=== PATIENT | female | born 2005 | race Hispanic/Latino ===

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

== ENCOUNTER 2024-04-11 16:09 | Emergency (ER) | payer MEDICAID ==
[~2024-04-11] VITALS: Ht 160 cm; Wt 54.9 kg
[~2024-04-11 16:09] MED LIST: CEPH500B PO
[2024-04-11] MEDS ORDERED: acetaMINOPHEN 500 MG TABLET PO ONE (16:30)
[2024-04-11 17:06] LABS: BASOPHILS # (AUTO) 0.01 K/uL (0.00-0.20); BASOPHILS % (AUTO) 0.2 % (0.0-5.0); EOSINOPHILS # (AUTO) 0.04 K/uL (0.00-0.70); EOSINOPHILS % (AUTO) 0.7 % (0.0-8.0); HEMATOCRIT 34.4 % (36-48); IMMATURE GRANULOCYTE ABSOLUTE 0.01 K/uL (0-1); LYMPHOCYTES # (AUTO) 1.1 K/uL (1.0-4.8); LYMPHOCYTES % (AUTO) 18.5 % (21.0-51.0); MEAN CORPUSCULAR HEMOGLOBIN 30.4 pg (27.0-33.0); MEAN CORPUSCULAR HGB CONC 33.7 g/dL (32.0-36.0); MEAN CORPUSCULAR VOLUME 90.1 fL (80-100); MONOCYTES # (AUTO) 0.3 K/uL (0.1-1.0); MONOCYTES % (AUTO) 5.7 % (3.0-13.0); NEUTROPHILS # (AUTO) 4.5 K/uL (1.8-7.7); NEUTROPHILS % (AUTO) 74.7 % (40.0-77.0); PLATELET COUNT (AUTO) 164 K/uL (130-400); RED BLOOD CELL COUNT(AUTO) 3.82 MIL/uL (4.00-5.50); RED CELL DISTRIBUTION WIDTH 14.4 % (11.0-15.5)
[2024-04-11 17:17] LABS: CREATININE 0.4 mg/dL (0.5-1.0); POTASSIUM 3.5 mmol/L (3.5-5.1)
[2024-04-11 18:38] VITALS: BP 100/61; PULSE 81; RESP 16; TEMP 97.9; O2SAT 100
== END 2024-04-11 18:41 | disposition home or self-care (01) ==
LOC: EDH 16:09
DX: O26.892 Other specified pregnancy related conditions, second trimester (principal); R10.30 Lower abdominal pain, unspecified; R10.2 Pelvic and perineal pain; Z3A.17 17 weeks gestation of pregnancy; Z88.1 Allergy status to other antibiotic agents
CPT/HCPCS: 36415; 76805; 80048; 84702; 85025; 86850; 86900; 86901

== ENCOUNTER 2024-07-04 04:43 | Observation (INO) | payer MEDICAID ==
[~2024-07-04] VITALS: Ht 160 cm; Wt 64.9 kg
[2024-07-04 04:45] VITALS: BP 118/68; PULSE 101; RESP 20; TEMP 98.8
--- NOTE | 2024-07-04 04:48 | NUR ---
REPORT GIVEN TO TERI AT [facility]. PT IN STABLE CONDITION FOR TRANSPORT TO UNIT.
[2024-07-04 05:23] LABS: APPEARANCE,URINE CLEAR (CLEAR); BILIRUBIN,URINE NEGATIVE (NEGATIVE); COLOR,URINE YELLOW (YELLOW); GLUCOSE, URINE (UA) NEGATIVE (NEGATIVE); KETONES,URINE 150 mg/dL (NEGATIVE); LEUKOCYTE ESTERASE ,URINE NEGATIVE Leu/uL (NEGATIVE); NITRATE,URINE NEGATIVE (NEGATIVE); OCCULT BLOOD,URINE NEGATIVE (NEGATIVE); PROTEIN,URINE 30 mg/dL (NEGATIVE); UROBILINOGEN,URINE 0.2 mg/dL (0.2-1.0)
[2024-07-04 05:29] LABS: ADD UA MICROSCOPIC YES
[2024-07-04 05:30] LABS: BACTERIA,URINE FEW /HPF (None Seen); MUCUS,URINE FEW LPF (None Seen); RBC,URINE 0-1 /HPF (0-1); SQUAMOUS EPITHELIAL CELL,UR RARE /HPF (0-2)
[2024-07-04] MEDS: LACTATED RINGERS 1000ML IV ONE ×2 (05:31→06:56)
[2024-07-04 05:33] LABS: CREATININE 0.5 mg/dL (0.5-1.0); POTASSIUM 3.4 mmol/L (3.5-5.1)
[2024-07-04 05:38] LABS: ALBUMIN 2.8 g/dL (3.5-5.0); BILIRUBIN,TOTAL 0.7 mg/dL (0.2-1.0); TOTAL PROTEIN, SERUM 6.9 g/dL (6.0-8.3)
[2024-07-04] MEDS: PROMETHAZINE HCL 25 MG/ML 1ML AMPULE IM ONE (06:54)
[2024-07-04] MEDS: LACTATED RINGERS 1000ML 1,000 ML IV SCH (06:54)
[2024-07-04] MEDS: ondanSETRON 4MG INJ IVP ONE (06:54)
--- NOTE | 2024-07-04 08:20 | HMCIMG ---
US FBP WO NON-STRESS COMPARISONS: None. INDICATION: Decreased movement FINDINGS: Transabdominal sonograms through the gravid uterus. An intrauterine gestation sac containing a single living fetus in longitudinal lie and cephalic presentation. Posterior grade 1 placenta without previa demonstrated. Amniotic fluid index is 13.0 cm. heart motion is demonstrated with regular rate of 152 beats per minute. Results of biophysical profile examination are as follows: breathing movements: score 2/ 2 Gross body movements: score 2/ 2 tone: score 2/ 2 Qualitative AFV: score 2/ 2 TOTAL SCORE: score 8/ 8 IMPRESSION: Single living intrauterine in the cephalic presentation with heart rate of 152 bpm. Biophysical profile score is 8 out of 8.
== END 2024-07-04 07:30 | disposition home or self-care (01) ==
LOC: EDH 04:43 → LDH 05:02
PROVIDERS: ADMIT Obstetrics & Gynecology; ATTEND Obstetrics & Gynecology
DX: O36.8130 Decreased fetal movements, third trimester, not applicable or unspecified (principal); O21.2 Late vomiting of pregnancy; Z98.890 Other specified postprocedural states; Z79.899 Other long term (current) drug therapy; Z3A.29 29 weeks gestation of pregnancy
CPT/HCPCS: 96374; 96372; 96361; 80053; 81001; 36415; 76819; G0378 ×3; G0379; J7120 ×3; J2550; J2405; 59025; 96360